=== PATIENT | male | born 1985 | race Caucasian/White ===

== ENCOUNTER 2016-12-23 22:55 | Emergency (ER) | payer OTHER ==
[~2016-12-23] VITALS: Ht 177.8 cm; Wt 88.5 kg
[2016-12-23] MEDS ORDERED: ONDANSETRON PF 4 MG/2 ML VIAL. IV ONE (23:00)
[2016-12-23] MEDS ORDERED: FAMOTIDINE 20 MG/2 ML VIAL IVP ONE (23:00)
[2016-12-23] MEDS ORDERED: IV NORMAL SALINE 1000ML BAG 1,000 ML IV ONE (23:15)
[2016-12-24] MEDS ORDERED: IV NORMAL SALINE 1000ML BAG 1,000 ML IV ONE (00:30)
[2016-12-24 02:30] VITALS: BP 94/53
--- NOTE | 2016-12-24 05:21 | ED.ADGEN ---
Past Medical History Past Medical History: No Pertinent History Past Surgical History: No Surgical History Alcohol Use: Heavy Drug Use: None Adult General Chief Complaint Chief Complaint: LOSS OF CONSCIOUSNESS HPI HPI Patient is a 31 year old male who presents with acute alcohol intoxication. Patient drank multiple all beverage this afternoon and had us by catheter simple episode of a baseball game this evening. Patient was witnessed of his head that denies headache and does not have any gross evidence of trauma. Patient brought in by private vehicle by family members. Patient with respiratory depression and altered mental status. Initial history limited due to patient's clinical condition. Additional history obtained from the patient's spouse. No history of drug abuse. Review of Systems Review of Systems ROS as per HPI. Current Medications Current Medications Current Medications Medications (Trade) Dose Ordered Sig/Pam Start Time Stop Time Status Last Admin Dose Admin Famotidine (Pepcid) 20 mg 1X ONCE 12/23/16 23:00 12/23/16 23:24 DC 12/23/16 23:10 20 MG Ondansetron HCl (Zofran) 8 mg 1X ONCE 12/23/16 23:00 12/23/16 23:24 DC 12/23/16 23:10 8 MG Sodium Chloride 1,000 ml @ 1,000 mls/hr 1X ONCE 12/24/16 00:30 12/24/16 01:29 DC 12/24/16 00:33 1,000 MLS/HR Allergies Allergies Allergies Coded Allergies Type Severity Reaction Last Updated Verified Penicillins Allergy Unknown 12/23/16 Yes Physical Exam Physical Exam Constitutional: obtunded, smells of EtOH. HENT: Normocephalic, atraumatic, bilateral external ears normal, oropharynx moist, no oral exudates, nose normal. [] Eyes: PERRLA, EOMI, conjunctiva injected, nystagmus present. Neck: Normal range of motion, no tenderness, supple, no stridor. [] Cardiovascular:Heart rate regular rhythm, no murmur [] Lungs & Thorax: Bilateral breath sounds clear to auscultation [] Abdomen: Bowel sounds normal, soft, no tenderness [] Extremities: No tenderness, no cyanosis, no clubbing, ROM intact, no edema. [] Neurologic: Alert and oriented X 3, normal motor function, normal sensory function, no focal deficits noted. [] Psychologic: Affect normal, judgement normal, mood normal. [] Current Patient Data Vital Signs Vital Signs Date Time Temp Pulse Resp B/P (MAP) Pulse Ox O2 Delivery O2 Flow Rate FiO2 12/24/16 02:30 64 16 96 12/23/16 23:00 98.2 116/67 (83) Room Air 98.2 Lab Values Laboratory Tests Test 12/23/16 23:02 Glucose (Fingerstick) 124 mg/dL (70-99) H EKG EKG [] Radiology/Procedures Radiology/Procedures [] Course & Med Decision Making Course & Med Decision Making Pertinent Labs and Imaging studies reviewed. (See chart for details) [Patient closely monitored in the ED ED arrival. He initially required oxygen. Patient alert and oriented and walks with steady gait minimal assist prior to discharge.eyes headache and any current symptoms of head injury. Patient discharged home to custody of spouse..] Dragon Disclaimer Dragon Disclaimer This electronic medical record was generated, in whole or in part, using a voice recognition dictation system. LON CHAVEZ DO Dec 24, 2016 05:21
--- NOTE | 2016-12-24 08:42 | EKG ---
[facility] [address] [place] [address] Test Date: 2016-12-23 Test Time: 23:08:39 Pat Name: ZACH RUSSELL Department: Room: Gender: M Codifier: : [id number] Requested By: LON CHAVEZ Order Number: [id number] Reading MD: Gualberto Feldman Measurements Intervals [place] Rate: 70 P: 21 MN: 168 QRS: 36 QRSD: 94 T: 23 QT: 396 QTc: 430 Interpretive Statements SINUS RHYTHM NO SPECIFIC ECG ABNORMALITIES Electronically Signed On 12-25-2016 15:06:36 CDT by Gualberto Feldman
== END 2016-12-24 02:40 | disposition home or self-care (01) ==
LOC: ER 22:55
DX: F10.129 Alcohol abuse with intoxication, unspecified (principal); Z88.0 Allergy status to penicillin
CPT/HCPCS: 82962; 93005; 96361; 96374; 96375; 99284; J2405; J7030; S0028